=== PATIENT | female | born 1980 | race Caucasian/White ===

== ENCOUNTER → 2017-02-17 | Outpatient (CLI) | payer BC ==
[2017-02-17 12:05] LABS: Prolactin 24.1 ng/mL (3.0-18.6)
[2017-02-18 03:05] LABS: ACTH >1250.00 pg/mL (0.00-45.99)
== END | disposition home or self-care (01) ==
LOC: LABWHC1 10:40
PROVIDERS: ATTEND Internal Medicine Endocrinology, Diabetes & Metabolism
DX: E11.649 Type 2 diabetes mellitus with hypoglycemia without coma (principal); N92.6 Irregular menstruation, unspecified
CPT/HCPCS: 36415; 82024; 82533; 84146; 84439; 84443; 84480